=== PATIENT | female | born 1970 | race Caucasian/White ===

== ENCOUNTER → 2023-08-20 12:57 | Outpatient (REF) | payer OTHER, SELFPAY | LOC: WDC 12:57 | PROVIDERS: ATTENDING PHYSICIAN Nurse Practitioner Adult Health | DX: Z12.31 Encounter for screening mammogram for malignant neoplasm of breast (principal); R92.8 Other abnormal and inconclusive findings on diagnostic imaging of breast | CPT/HCPCS: 76642; 77063; 77067 ==

== ENCOUNTER → 2024-08-20 13:55 | Outpatient (REF) | payer BC, SELFPAY | LOC: WDC 13:55 | PROVIDERS: ATTENDING PHYSICIAN Nurse Practitioner Adult Health | DX: Z12.31 Encounter for screening mammogram for malignant neoplasm of breast (principal) | CPT/HCPCS: 77063; 77067 ==